=== PATIENT | male | born 1965 | race Caucasian/White ===

== ENCOUNTER 2020-08-02 08:34 | Day surgery (SDC) | payer OTHER ==
--- NOTE | 2020-07-31 11:00 | RAD REPORT ---
EXAM DESCRIPTION: RAD - Chest Pa And Lat (2 Views) - 07/31/2020 10:44 am CLINICAL HISTORY: PREOP, patient pending soft tissue mass removal COMPARISON: None TECHNIQUE: Frontal and lateral views of the chest were obtained. FINDINGS: The lungs are clear. Heart size is normal and central vasculature is within normal limit s. No pleural effusion or pneumothorax seen. No acute bony finding noted. No aortic abnormality. IMPRESSION: No acute cardiopulmonary process.
[2020-07-31 11:08] LABS: Absolute Lymphocytes (CBC) 1.9 K/uL (0.7-4.9); Basophils % 1.1 % (0-1.3); Hematocrit 47.1 % (39.6-49.0); Lymphocytes % 26.6 % (15.3-44.8); MPV 6.7 fL (7.6-11.3); RBC Red Blood Cell Count 5.23 M/uL (4.33-5.43)
[2020-07-31 11:22] LABS: Potassium 4.7 mmol/L (3.5-5.1)
[2020-08-02] MEDS ORDERED: Ringers Lactate 1,000 ML IV ONE (09:12)
[2020-08-02] MEDS ORDERED: LIDOCAINE 1% MPF 30 ML VIAL ONE (09:35)
[2020-08-02 09:44] VITALS: O2SAT 97
[2020-08-02] MEDS ORDERED: FENTANYL CITR 100 MCG/2 ML ONE (09:44)
[2020-08-02] MEDS ORDERED: propofoL 200 MG/20 ML VIAL IV ONE (09:44)
[2020-08-02] MEDS ORDERED: MIDAZOLAM HCL 2 MG/2 ML INJ ONE ×2 (09:44→10:07)
[2020-08-02] MEDS ORDERED: LIDOCAINE 1% MPF 5 ML VIAL ONE (09:44)
[2020-08-02] MEDS: CEFAZOLIN/SWI 1gm 1 GM/10 ML SYR ONE ×2 (09:55→09:59)
--- NOTE | 2020-08-02 10:17 | P.BOP ---
Preoperative diagnosis: infected back subQ mass with abscess Postoperative diagnosis: same Primary procedure: Excisional biopsy infected back subQ mass with abscess drain Secondary procedure: 5x4cm Estimated blood loss: <10cc Specimen: infected back subQ mass with abscess Findings: infected back subQ mass with abscess Anesthesia: MAC Complications: None Transferred to: Recovery Room Condition: Good
[2020-08-02] MEDS ORDERED: KETOROLAC 30 MG/ML INJ ONE (10:30)
[2020-08-02] MEDS ORDERED: ONDANSETRON 4 MG/2 ML VIAL ONE (10:31)
[2020-08-02 10:44] VITALS: BP 100/66; TEMP 97.4
--- NOTE | 2020-08-02 10:49 | OP ---
Date of Procedure: 08/02/2020 Surgeon: Bashir Guerrero MD Preoperative Diagnosis: Infected back subcutaneous mass with abscess and cellulitis. Postoperative Diagnosis: Infected back subcutaneous mass with abscess and cellulitis. Procedure: Excisional biopsy of infected back subcutaneous mass with abscess drain is about 5 x 4 cm . Estimated Blood Loss: Less than 10 mL. Specimen: Infected subcutaneous mass with culture of the pus. Anesthesia: MAC plus local. Indications: This is a case of a 54-year-old male, who comes to us with infected back mass. Benefit s, alternatives, and risks of excisional biopsy of infected back mass with drainage of an abscess ful ly explained which include, but not limited to infection, bleeding, damage to adjacent structures, an esthesia complication, recurrence, SC, and even . He also understands this may not relieve symp toms. He might need more than one surgical intervention. He also understands he may require wound c are. The patient's feel comfortable with wet-to-dry dressing. Consent was signed. The patient 's area was marked by me and the patient in the holding room. Procedure In Detail: The patient was brought to the operating room, placed in supine position. Anes thesia was done without complication. Back area was prepped and draped in a sterile fashion, after p atient was placed in lateral decubitus position with proper protection. A time-out was called. An i ncision was made after injecting local anesthetic in a wedge fashion. Incision was carried down to d eep subcutaneous tissue all the way down to fascia near the muscle. Area was irrigated. The hemosta sis obtained. Cultures were obtained. Abscess was drained. Loculations were explored open and the mass was excised. The patient covered with wet-to-dry dressing and sent to recovery in stable condition. VERONICA/MODL Voice ID: [id number] Report ID: [id number]
--- NOTE | 2020-08-02 10:49 | DS ---
Diagnosis: Infected back subcutaneous mass. Procedure: Excisional biopsy of infected back subcutaneous mass with abscess drainage. Disposition: Home. Activity: As tolerated. No heavy lifting. Wet-to-dry dressing with normal saline daily. Medications: Include Tylenol No.3 q.4 hours p.r.n. pain. Cipro 500 p.o. q.12. Normal saline. VERONICA/BALTA Voice ID: [id number] Report ID: [id number]
== END 2020-08-02 11:20 | disposition home or self-care (01) ==
LOC: OR 08:34
PROVIDERS: ATTEND Surgery
PROC: 0JB70ZZ Excision of Back Subcutaneous Tissue and Fascia, Open Approach (ICD-10-PCS; principal; 2020-08-02 10:15)
DX: L72.0 Epidermal cyst (principal); L03.312 Cellulitis of back [any part except buttock and flank]; Z20.822 Contact with and (suspected) exposure to COVID-19
CPT/HCPCS: 93005; 87070; 85025; 80048; 36415; 87205 ×2; 88304; 87075; 87077; 87186; 71046; 11406; U0003; J2704; J2250 ×2; J3010; J0690; J7120; J2405; 88305